=== PATIENT | female | born 1960 | race American Indian/Alaskan Native ===

== ENCOUNTER 2018-06-28 17:30 | Emergency (ER) | payer OTHER ==
[~2018-06-28] VITALS: Ht 165.1 cm; Wt 68.0 kg
[~2018-06-28 17:30] MED LIST: AZIT250 PO; ENOX100I SC; ESTRTP VAG; FOLGARD TABLET1 EACH PO; HYDR1TAB94 PO; Hair, Skin & N1 EACH PO; Percocet 5-3251 EACH PO; WARF10 PO; WARFARIN
== END 2018-06-28 19:00 | disposition home or self-care (01) ==
LOC: ER 17:30
DX: S93.402A Sprain of unspecified ligament of left ankle, initial encounter (principal); W18.42XA Slipping, tripping and stumbling without falling due to stepping into hole or opening, initial encounter; F17.210 Nicotine dependence, cigarettes, uncomplicated
CPT/HCPCS: 29515; 73610; 99283-25

== ENCOUNTER → 2022-05-21 | Outpatient (CLI) | payer OTHER | END | disposition home or self-care (01) | LOC: LAB SHORT 15:05 | DX: R82.998 Other abnormal findings in urine (principal) | CPT/HCPCS: 87086 ==